=== PATIENT | male | born 1990 ===

== ENCOUNTER 2017-06-10 22:18 | Emergency (ER) | payer OTHER ==
[2017-06-10 22:29] VITALS: BP 145/87; PULSE 80; RESP 16; TEMP 98.6; O2SAT 99
--- NOTE | 2017-06-10 22:47 | C.PDOC ---
History Of Present Illness 27 year old male presents to the ER s/p inguinal hernia repair by Dr. Parmar 2 months ago with a complaint of intermittent groin discomfort for the past several weeks. Patient noted at work today the the pain was especially worse when lifting heavy objects. Denies penile discharge, dysuria, testicular pain, flank pain, back pain, or fever, Chief Complaint (Nursing): Groin Pain History Per: Patient History/Exam Limitations: no limitations Onset/Duration Of Symptoms: Days, Intermittent Episodes Current Symptoms Are (Timing): Gone Quality Of Discomfort: Unable To Describe Associated Symptoms: denies: Fever, Back Pain, Urinary Symptoms Alleviating Factors: None Recent travel outside of the [place]: No Past Medical History Reviewed: Historical Data, Nursing Documentation, Vital Signs Vital Signs: Last Vital Signs Temp 98.6 F 06/10/17 22:22 Pulse 80 06/10/17 22:22 Resp 16 06/10/17 22:22 BP 145/87 06/10/17 22:22 Pulse Ox 99 06/11/17 00:17 Surgical History: Hernia Repair (Inguinal) Family History: States: Unknown Family Hx - Social History Hx Alcohol Use: Yes Hx Substance Use: No - Immunization History Hx Tetanus Toxoid Vaccination: Yes Hx Influenza Vaccination: Yes Hx Pneumococcal Vaccination: Yes Review Of Systems Constitutional: Negative for: Fever, Chills Cardiovascular: Negative for: Chest Pain, Palpitations Respiratory: Negative for: Shortness of Breath Genitourinary: Positive for: Other (Groin pain). Negative for: Dysuria, Penile Discharge, Scrotal Pain, Penile Pain Musculoskeletal: Negative for: Back Pain Physical Exam - Physical Exam Appears: Non-toxic, No Acute Distress Skin: Normal Color, Warm, Dry Head: Atraumatic, Normacephalic Eye(s): bilateral: Normal Inspection Oral Mucosa: Moist Chest: Symmetrical, No Tenderness Cardiovascular: Rhythm Regular Respiratory: Normal Breath Sounds, No Rales, No Rhonchi, No Wheezing Gastrointestinal/Abdominal: Soft, No Tenderness Male Genital: Normal Inspection, No Testicular Tenderness, No Testicular Swelling, No Inguinal Tenderness, No Inguinal Swelling, No Scrotal Swelling, No Circumcised, Other (Mild discomfort over mons pubis, no lesions identified, no skin abnormalities appreciated. Cremasteric reflex intact.) Neurological/Psych: Oriented x3, Normal Speech ED Course And Treatment O2 Sat by Pulse Oximetry: 99 (Room air) Pulse Ox Interpretation: Normal Medical Decision Making Medical Decision Making: Patient with intermittent groin pain, s/p hernia repair, will refer to surgeon for follow up. Disposition - Disposition Referrals: [facility] [Outside] Disposition: HOME/ ROUTINE Disposition Time: 22:50 Condition: GOOD Additional Instructions: f/u with your surgeon Dr Reaves Instructions: Groin Pain (ED) Forms: [employer] (Norwegian) - Clinical Impression Clinical Impression: Groin pain - Scribe Statement The provider has reviewed the documentation as recorded by the Scribagustín Saldivar All medical record entries made by the Scribe were at my direction and personally dictated by me. I have reviewed the chart and agree that the record accurately reflects my personal performance of the history, physical exam, medical decision making, and the department course for this patient. I have also personally directed, reviewed, and agree with the discharge instructions and disposition.
== END 2017-06-10 23:02 | disposition home or self-care (01) ==
LOC: C.ER 22:18
DX: R10.30 Lower abdominal pain, unspecified (principal)